=== PATIENT | female | born 1940 | race Caucasian/White ===

== ENCOUNTER 2016-08-01 16:28 | Inpatient (IN) | payer MEDICARE, OTHER, MEDICAID ==
--- NOTE | 2016-08-01 16:57 | EDM.PDOC ---
ED HPI GENERAL MEDICAL PROBLEM - General Chief Complaint: General Stated Complaint: DECREASED MENTAL STATE Time Seen by Provider: 08/01/16 16:35 Source of Information: Reports: Family, [facility] records, Old records History Limitations: Reports: Other (patient is non-verbal) - History of Present Illness INITIAL COMMENTS - FREE TEXT/NARRATIVE: 76 yo female [facility] patient with a DNR order has been declining reportedly since . Not eating/drinking for the past couple of days. Not able to take any of her oral meds. Daughter visiting from [place] and asked the [facility] staff to have her sent to the ER for evaluation. Dr. Colon patient. Onset: gradual Onset Date: 07/05/16 Duration: Week(s):, Getting worse Location: Reports: other (Uncertain) Severity: moderate Improves with: Reports: None Worsens with: Reports: Other (Time?) Context: Reports: Other ([facility] patient with recent decline, DNR status) Associated Symptoms: Reports: loss of appetite, weakness Treatments ORTHOTIC FITTER: Reports: Other (see below) (None) - Related Data Allergies Allergy/AdvReac Type Severity Reaction Status Date / Time No Known Allergies Allergy Verified 04/28/13 13:31 Home Meds: Home Meds Acetaminophen [Tylenol] 650 mg PO BID 04/28/13 [History] Aspirin/Calcium Carbonate/Mag [Aspirin Buffered 325 mg Tab] 325 mg PO DAILY 11/02 [History] Carboxymethylcellulose Sodium [Refresh Plus 0.5% Ophth Soln] 1 drop EYEBOTH QID 04/28/13 [History] Cholecalciferol (Vitamin D3) [Thera-D] 2,000 units PO 04/28/13 [History] Cyanocobalamin/Folic Acid [Vitamin Q81-Ketxm Acid] 1 tab PO DAILY 04/28/13 [ History] Donepezil [Aricept] 5 mg PO DAILY 04/28/13 [History] Estradiol [Climara] 1 each TD ASDIRECTED 04/28/13 [History] Eucalyptus/Menthol [Menthol Cough Drops] 1 PRN 04/28/13 [History] Gabapentin [Neurontin] 300 mg PO TID 04/28/13 [History] Gabapentin [Neurontin] 400 mg PO BEDTIME 04/28/13 [History] Glycerin 1 supp.rect PRN 04/28/13 [History] Hydrocortisone [Anusol-HC] PRN 04/28/13 [History] Hypromellose [GenTeal Mild to Moderate Ophth Soln] 25 ml EYELF DAILY 04/28/13 [ History] LORazepam [Ativan] 0.5 mg PO PRN 04/28/13 [History] LORazepam [Ativan] 0.5 mg PO PRN 04/28/13 [History] Levothyroxine 25 mcg PO ACBRK 04/28/13 [History] [place] Carbonate 300 mg PO DAILY 04/28/13 [History] Loperamide HCl [Imodium A-D] 2 mg PO PRN 04/28/13 [History] Loratadine [Claritin] 10 mg PO DAILY 04/28/13 [History] Magnesium Hydroxide [Milk of Magnesia] 5 ml PRN 04/28/13 [History] Memantine [Namenda] 10 mg PO BID 04/28/13 [History] Miscellaneous Medical Supply [Eyelid Cleansing Pads] 1 each EYEBOTH BID [History] Na Phos,M-B/Na Phos,DI-B [Fleet Enema] 1 PRN 04/28/13 [History] OLANZapine [ZyPREXA] 5 mg PO DAILY 04/28/13 [History] OLANZapine [ZyPREXA] 10 mg PO DAILY 04/28/13 [History] Sertraline HCl [Zoloft] 50 mg PO DAILY 04/28/13 [History] Sodium Chloride 0.9% [Saline Flush] 10 ml EYEBOTH QID 04/28/13 [History] cycloSPORINE [Restasis] 1 drop EYEBOTH QID 04/28/13 [History] guaiFENesin [Robitussin] 5 mg PO PRN 04/28/13 [History] lamoTRIgine [Lamictal] 50 mg PO BID 04/28/13 [History] ED ROS GENERAL - Review of Systems Review Of Systems: See Below Constitutional: Reports: fever (low grade?), malaise, weakness, decreased appetite HEENT: Reports: Other (Redness of gum tissue of central maxilla, dry mouth) Cardiovascular: Reports: Other (tachycardia noted) Endocrine: Reports: no symptoms GI/Abdominal: Reports: Anorexia. Denies: Black stool, Bloody stool, Constipation, Diarrhea, Hematemesis, Hematochezia, Melena, Vomiting : Reports: no symptoms Musculoskeletal: Reports: no symptoms Skin: Reports: no symptoms Neurological: Reports: Other (Non-verbal, general decline over past 3 weeks. Not eating or drinking. ). Denies: Seizure, Syncope, Tremors Psychiatric: Reports: Confusion (more than in past. ). Denies: Agitation, Anxiety, Homicidal ideation, Suicidal ideation ED EXAM, GENERAL - Physical Exam Exam: See Below Exam Limited By: No limitations General Appearance: WD/WN, no apparent distress, lethargic Eye Exam: bilateral eye: normal inspection Ears: normal external exam, normal canal, normal TMs Ear Exam: bilateral ear: auricle normal, canal normal, TM normal Nose: normal inspection, normal mucosa, no blood Throat/Mouth: No airway compromise, Inflammation (of gum tissue with poor oral hygiene and poor dentitian. Dry oral mucosa. ). No: Normal inspection, Normal lips, Normal teeth, Normal oropharynx Head: atraumatic, normocephalic Neck: normal inspection Respiratory/Chest: no respiratory distress, lungs clear, normal breath sounds, no accessory muscle use Cardiovascular: tachycardia (rate near 100/min. ). No: irregularly irregular GI/Abdominal: soft, no distention Back Exam: normal inspection Extremities: normal inspection, normal range of motion, no pedal edema Neurological: no motor/sensory deficits Skin Exam: Warm, Dry, Intact, Normal color, No rash Lymphatic: no adenopathy EKG INTERPRETATION EKG Date: 08/01/16 Time: 18:30 Rhythm: NSR Rate (beats/min): 118 [place]: normal P-wave: present QRS: normal ST-T: elevated (V2, V3) QT: normal EKG Interpretation Comments: T's flipped I, AVL and V4-V6 Course - Vital Signs Text/Narrative:: saline lock, LR 1000 ml IV CXR-neg. Abdomen-increased air Last Recorded V/S: Last Vital Signs Temp 37.3 C 08/01/16 16:41 Pulse 92 08/01/16 16:41 Resp 14 08/01/16 16:41 BP 170/96 H 08/01/16 16:41 Pulse Ox 95 08/01/16 16:41 - Orders/Labs/Meds Orders: Active Orders 24 hr Category Date Time Status EKG Documentation Completion [RC] ASDIRECTED Care 08/01/16 18:04 Active [place] Catheter Insertion [Insert Urinary Catheter] [OM. Care 08/01/16 16:45 Ordered PC] Q24H Urinary Catheter Assessment [RC] QSHIFT Care 08/01/16 16:46 Active Abdomen 1V Flat [CR] Stat Exams 08/01/16 17:02 Taken Chest 1V Frontal [CR] Stat Exams 08/01/16 17:02 Taken CULTURE BLOOD [BC] Urgent Lab 08/01/16 16:55 Results CULTURE BLOOD [BC] Urgent Lab 08/01/16 17:04 Received Sodium Chloride 0.9% [Saline Flush] Med 08/01/16 16:46 Active 10 ml FLUSH ASDIRECTED PRN Blood Culture x2 Reflex Set [OM.PC] Urgent Oth 08/01/16 16:46 Ordered Saline Lock Insert [OM.PC] Routine Oth 08/01/16 16:46 Ordered EKG 12 Lead [EK] Routine Ther 08/01/16 18:04 Ordered Medication Orders Sodium Chloride (Saline Flush) 10 ml FLUSH ASDIRECTED PRN PRN Reason: Keep Vein Open Labs: Laboratory Tests 08/01/16 08/01/16 08/01/16 Range/Units 16:55 16:55 16:55 WBC 16.1 H (4.5-12.0) X10-3/uL RBC 5.51 H (3.23-5.20) x10(6)uL Hgb 16.4 H (11.5-15.5) g/dL Hct 50.7 (30.0-51.3) % MCV 92.0 (80-96) fL MCH 29.7 (27.7-33.6) pg MCHC 32.3 (32.2-35.4) g/dL RDW 13.8 (11.5-15.5) % Plt Count 321 (125-369) X10(3)uL Sodium 147 H (135-145) mmol/L Potassium 3.8 (3.5-5.3) mmol/L Chloride 121 H* D (100-110) mmol/L Carbon Dioxide 17 L (23-29) mmol/L BUN 32 H D (8-23) mg/dL Creatinine 1.8 H (0.6-1.3) mg/dL Est Cr Clr Drug Dosing TNP Estimated GFR (MDRD) 27 L (>60) BUN/Creatinine Ratio 17.8 (9-20) Glucose 310 H (80-116) mg/dL Lactic Acid 1.8 (0.5-2.2) mmol/L Calcium 10.7 H (8.6-10.2) mg/dL Total Bilirubin 1.2 (0.1-1.3) mg/dL AST 118 H D (5-27) IU/L ALT 43 H D (14-26) IU/L Alkaline Phosphatase 57 (56-112) IU/L Troponin I (0.02-0.06) NG/ML Total Protein 8.9 H (6.0-8.0) g/dL Albumin 4.3 (3.2-4.6) g/dL Globulin 4.6 g/dL Albumin/Globulin Ratio 0.9 Urine Color (YELLOW) Urine Appearance (CLEAR) Urine pH (5.0-6.5) Ur Specific [place] (1.010-1.025) Urine Protein (NEGATIVE) mg/dL Urine Glucose (UA) (NEGATIVE) mg/dL Urine Ketones (NEGATIVE) mg/dL Urine Occult Blood (NEGATIVE) Urine Nitrite (NEGATIVE) Urine Bilirubin (NEGATIVE) Urine Urobilinogen (NEGATIVE) mg/dL Ur Leukocyte Esterase (NEGATIVE) Urine RBC (0) Urine WBC (0) Ur Squamous Epith Cells (NS,R,O) Amorphous Sediment Urine Bacteria (NS) Hyaline Casts (NS) 08/01/16 08/01/16 Range/Units 16:55 17:22 WBC (4.5-12.0) X10-3/uL RBC (3.23-5.20) x10(6)uL Hgb (11.5-15.5) g/dL Hct (30.0-51.3) % MCV (80-96) fL MCH (27.7-33.6) pg MCHC (32.2-35.4) g/dL RDW (11.5-15.5) % Plt Count (125-369) X10(3)uL Sodium (135-145) mmol/L Potassium (3.5-5.3) mmol/L Chloride (100-110) mmol/L Carbon Dioxide (23-29) mmol/L BUN (8-23) mg/dL Creatinine (0.6-1.3) mg/dL Est Cr Clr Drug Dosing Estimated GFR (MDRD) (>60) BUN/Creatinine Ratio (9-20) Glucose (80-116) mg/dL Lactic Acid (0.5-2.2) mmol/L Calcium (8.6-10.2) mg/dL Total Bilirubin (0.1-1.3) mg/dL AST (5-27) IU/L ALT (14-26) IU/L Alkaline Phosphatase (56-112) IU/L Troponin I 0.75 H* (0.02-0.06) NG/ML Total Protein (6.0-8.0) g/dL Albumin (3.2-4.6) g/dL Globulin g/dL Albumin/Globulin Ratio Urine Color Yellow (YELLOW) Urine Appearance Slightly cloudy (CLEAR) Urine pH 5.0 (5.0-6.5) Ur Specific [place] 1.020 (1.010-1.025) Urine Protein 500 H (NEGATIVE) mg/dL Urine Glucose (UA) Normal (NEGATIVE) mg/dL Urine Ketones Negative (NEGATIVE) mg/dL Urine Occult Blood Large H (NEGATIVE) Urine Nitrite Negative (NEGATIVE) Urine Bilirubin Small H (NEGATIVE) Urine Urobilinogen Normal (NEGATIVE) mg/dL Ur Leukocyte Esterase Negative (NEGATIVE) Urine RBC 0-5 (0) Urine WBC 0-5 (0) Ur Squamous Epith Cells Not seen (NS,R,O) Amorphous Sediment Many Urine Bacteria Few H (NS) Hyaline Casts Moderate H (NS) Meds: Medications Generic Name Dose Route Start Last Admin Trade Name Freq PRN Reason Stop Dose Admin Sodium Chloride 10 ml 08/01/16 16:46 Saline Flush FLUSH ASDIRECTED PRN Keep Vein Open Discontinued Medications Generic Name Dose Route Start Last Admin Trade Name Freq PRN Reason Stop Dose Admin Lactated Ringer's 1,000 mls @ 1,000 mls/hr 08/01/16 17:33 Ringers, Lactated IV 08/01/16 18:32 BOLUS ONE Departure - Departure Time of Disposition: 19:00 Disposition: Admitted As Inpatient 66 Condition: serious Clinical Impression: MO, Myocardial infarction, Hyperglycemia - My Orders Last 24 Hours: My Active Orders 08/01/16 16:45 [place] Catheter Insertion [Insert Urinary Catheter] [OM.PC] Q24H 08/01/16 16:46 Urinary Catheter Assessment [RC] QSHIFT Sodium Chloride 0.9% [Saline Flush] 10 ml FLUSH ASDIRECTED PRN Blood Culture x2 Reflex Set [OM.PC] Urgent Saline Lock Insert [OM.PC] Routine 08/01/16 16:55 CULTURE BLOOD [BC] Urgent 08/01/16 17:02 Abdomen 1V Flat [CR] Stat Chest 1V Frontal [CR] Stat 08/01/16 17:04 CULTURE BLOOD [BC] Urgent 08/01/16 18:04 EKG Documentation Completion [RC] ASDIRECTED EKG 12 Lead [EK] Routine - Assessment/Plan Last 24 Hours: My Active Orders 08/01/16 16:45 [place] Catheter Insertion [Insert Urinary Catheter] [OM.PC] Q24H 08/01/16 16:46 Urinary Catheter Assessment [RC] QSHIFT Sodium Chloride 0.9% [Saline Flush] 10 ml FLUSH ASDIRECTED PRN Blood Culture x2 Reflex Set [OM.PC] Urgent Saline Lock Insert [OM.PC] Routine 08/01/16 16:55 CULTURE BLOOD [BC] Urgent 08/01/16 17:02 Abdomen 1V Flat [CR] Stat Chest 1V Frontal [CR] Stat 08/01/16 17:04 CULTURE BLOOD [BC] Urgent 08/01/16 18:04 EKG Documentation Completion [RC] ASDIRECTED EKG 12 Lead [EK] Routine
[2016-08-01] MEDS ORDERED: Lactated Ringers 1,000 ML IV ONE (17:33)
[2016-08-01] MEDS ORDERED: Ondansetron 4 MG/2 ML SDV IV PRN (18:44)
[2016-08-01] MEDS ORDERED: Acetaminophen 650 MG Supp RECTAL PRN (18:44)
[2016-08-01] MEDS ORDERED: Lactated Ringers 1,000 ML IV SCH (19:00)
[2016-08-01] MEDS ORDERED: Diltiazem 100 MG in Sodium Chloride 0.9% 100 ML IV SCH (19:15)
[2016-08-01] MEDS: Sodium Chloride 0.9% 10 ML Syringe FLUSH PRN ×2 (19:29→19:33)
[2016-08-01] MEDS: Morphine 2 MG/ML Syringe IVPUSH PRN (19:41)
[2016-08-01] MEDS ORDERED: Sodium Chloride 0.9% 1,000 ML IV SCH ×2 (20:45→22:45)
[2016-08-01] MEDS ORDERED: Aspirin 325 MG Tab PO ONE (21:16)
[2016-08-01] MEDS ORDERED: Aspirin 81 MG Tab.Chew ONE (21:44)
[2016-08-01] MEDS ORDERED: Carboxymethylcellulose Sodium 0.5% Ophth Soln 15 ML Bottle ONE (21:44)
[2016-08-01] MEDS: MEDICAL SUPPLY EYEBOTH SCH (21:52)
[2016-08-01] MEDS: Enoxaparin 80 MG/0.8 ML Syringe SUBCUT SCH (21:56)
[2016-08-01] MEDS: Carboxymethylcellulose Sodium 0.5% Ophth Soln 0.4 ML UD Box of 30 EYEBOTH SCH (21:57)
[2016-08-01] MEDS ORDERED: OLANZapine 10 MG Vial IM ONE (22:44)
[2016-08-02] MEDS ORDERED: OLANZapine 10 MG Vial IM ONE (02:00)
[2016-08-02] MEDS: Morphine 2 MG/ML Syringe IVPUSH PRN ×4 (08:43→18:42)
[2016-08-02] MEDS: Dextrose 5% in Water 1,000 ML IV SCH (08:48)
[2016-08-02] MEDS ORDERED: Glycerin Pediatric 1.2 GM Supp RECTAL SCH (09:00)
[2016-08-02] MEDS: Aspirin 300 MG Supp RECTAL SCH (09:42)
[2016-08-02] MEDS: Hypromellose 0.3% Ophth Soln 15 ML Bottle EYELF SCH (09:43)
[2016-08-02] MEDS ORDERED: Eyelid Cleanser Pads, 30 per Box TP SCH (10:20)
[2016-08-02] MEDS: Enoxaparin 80 MG/0.8 ML Syringe SUBCUT SCH ×2 (11:08→20:05)
[2016-08-02] MEDS: Carboxymethylcellulose Sodium 0.5% Ophth Soln 15 ML Bottle EYEBOTH SCH ×4 (11:08→20:07)
[2016-08-02] MEDS: Insulin Aspart 100 Units/ML 3 ML Pen SUBCUT SCH ×3 (11:15→20:19)
[2016-08-02] MEDS: MEDICAL SUPPLY EYEBOTH SCH (11:25)
[2016-08-02] MEDS: Carboxymethylcellulose Sodium 0.5% Ophth Soln 0.4 ML UD Box of 30 EYEBOTH SCH (11:25)
--- NOTE | 2016-08-02 11:26 | CR ---
INDICATION: Fever, decreased level of consciousness. CHEST: An AP 45 degree upright view of the chest 08/01/2016, compared with and 07/17/2016, revealed findings remaining compatible with exogenous obesity. Poor inspiration is noted emphasizing markings and heart. No consolidating pneumonia or effusion is identified. The heart did not appear grossly enlarged. The aorta is tortuous. No definite free air is noted under the hemidiaphragm leaves. IMPRESSION: No definite acute process. The study is somewhat limited. MTDD
--- NOTE | 2016-08-02 11:34 | CR ---
INDICATION: Fever, decreased level of consciousness, question abdominal pain. ABDOMEN: Three supine images of the abdomen were obtained 08/01/2016 and compared with 12/09/2013. Iliac and uterine artery calcifications are noted. There is question of densities in the area of the gallbladder, raising question of cholelithiasis. This should be correlated clinically. Bowel containing air in the mid abdomen is somewhat prominent, with an appearance to the left suggesting cecum, which would represent a mobile cecum. There is, however, noted colon in the area of the right lower quadrant. No other organomegaly or mass lesions were identified. No gross free air was seen. There is noted gas in the area of the rectosigmoid and rectum. Post surgical change is noted at the pubic symphysis. IMPRESSION: 1. Question the possibility of a mobile cecum and/or malrotation, with what appears to be the cecum in the left mid abdomen. It appears slightly distended , as is adjacent colon, which may be incidental. If a mechanically obstructive process of the large bowel is suspected clinically, colonoscopy or barium enema is recommended for further evaluation. 2. Difficult to exclude cholelithiasis, with some densities overlying that area. 3. ASD. 4. There is suggestion of some deformity at the proximal right femur, not present on the previous examination, raising question of interval fracture - correlate clinically. MTDD
--- NOTE | 2016-08-02 13:08 | PCM.HP ---
H&P History of Present Illness - General Date of Service: 08/02/16 Admit Problem/Dx: Admission Diagnosis/Problem Admission Diagnosis/Problem Acute myocardial infarction Source of Information: [facility] Records, Provider History Limitations: Reports: Altered Mental Status - History of Present Illness Initial Comments - Free Text/Narative: 76 y female residential resident admitted overnight for sudden decline in mental status and several days of refusing intake including food/fluids and numerous medications resulting in agitation and increased restlessness. she'd not been having fevers or chills. no n/v. no rash or change in bowels, bladder. just became difficult to arouse. seen in ED and found to be dehydrated, combative, noted to have poor dentition with a avulsed tooth requiring extraction by ED doc. unsure how this happened, but was acute and likely due to poor dentition and combativeness. she was started on iv clindamycin (for dental trauma/infection), iv fluids for electrolyte disturbance and hyperglycemia in the setting of severely uncontrolled DM2. her trops came back elevated and progressed. she was given asa 325 crushed, started on therapeutic lovenox, and standard ACS protocol. ck severely elevated as well. she required zyprexa dose overnight due to aggitation and restlessness. her bp became labile. Today she is at the nurses station in a reclined chair. awake, but not conversive. will not let me touch her. after some time, i am able to conduct a general exam without overstimulating her. no family present at this time. nursing report received. - Related Data Allergies/Adverse Reactions: Allergies Allergy/AdvReac Type Severity Reaction Status Date / Time No Known Allergies Allergy Verified 04/28/13 13:31 Home Medications: Home Meds Carboxymethylcellulose Sodium [Refresh Plus 0.5%] 1 drop EYEBOTH QID 04/28/13 [ History] Gabapentin [Neurontin] 300 mg PO TID 04/28/13 [History] Gabapentin [Neurontin] 400 mg PO BEDTIME 04/28/13 [History] Hydrocortisone [Anusol-HC] 1 applic RECTAL DAILY 04/28/13 [History] Hypromellose [GenTeal Mild to Moderate Ophth Soln] 25 ml EYELF DAILY 04/28/13 [ History] LORazepam [Ativan] 0.5 mg PO TID 04/28/13 [History] Loperamide HCl [Imodium A-D] 2 mg PO DAILY 04/28/13 [History] Loratadine [Claritin] 10 mg PO DAILY 04/28/13 [History] Magnesium Hydroxide [Milk of Magnesia] 5 ml PO DAILY 04/28/13 [History] Miscellaneous Medical Supply [Eyelid Cleansing Pads] 1 each EYEBOTH BID [History] OLANZapine [ZyPREXA] 5 mg PO DAILY 04/28/13 [History] OLANZapine [ZyPREXA] 10 mg PO DAILY 04/28/13 [History] cycloSPORINE [Restasis] 1 drop EYEBOTH QID 04/28/13 [History] guaiFENesin [Robitussin] 5 mg PO ASDIRECTED PRN 04/28/13 [History] Acetaminophen [Tylenol] 650 mg RECTAL Q4H PRN #0 supp 08/02/16 [Rx] Aspirin 600 mg RECTAL DAILY supp 08/02/16 [Rx] Eyelid Cleanser [Ocusoft Lid Scrub Plus] 1 pad TP BID pad 08/02/16 [Rx] Morphine 2 mg IVPUSH Q2H PRN #0 syringe 08/02/16 [Rx] Ondansetron [Zofran] 4 mg IV Q6H PRN #0 vial 08/02/16 [Rx] Sodium Chloride 0.9% [Saline Flush] 10 ml FLUSH ASDIRECTED PRN #0 syringe [Rx] Past Medical History HEENT History: Reports: Impaired Vision, Other (See Below) Other HEENT History: HAS REFRESH EYE DROPS. 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 Social & Family History - Family History Family Medical History: Unobtainable - Tobacco Use Smoking Status *Q: Never Smoker Second Hand Smoke Exposure: No - Caffeine Use Caffeine Use: Reports: None - Recreational Drug Use Recreational Drug Use: No - Living Situation & Occupation Living situation: Reports: , Extended Care Facility [facility] H&P Review of Systems - Review of Systems: Review Of Systems: Unable To Obtain Exam - Exam Exam: See Below - Vital Signs Vital Signs: Last Vital Signs Temp 98.9 F 08/02/16 12:30 Pulse 94 08/02/16 12:30 Resp 20 08/02/16 12:30 BP 165/84 H 08/02/16 12:30 Pulse Ox 93 L 08/02/16 12:30 Weight: 84 kg - Exam Physical Exam Comments:: Quality Assessment: Reports: urine catheter General: Reports: lethargic, non communicative HEENT: Reports: Pupils equal. Denies: Mucous membr. moist/pink, dried blood to oral mucosa. molar extraction hemostatic. no pus. no jaw swelling or warmth. Neck: Reports: trachea midline, no adenopathy Lungs: Reports: Decreased breath sounds no Rales Cardiovascular: Reports: Regular Rate, Regular Rhythm, Gallops Abdomen: Reports: bowel sounds present, soft Extremities: Reports: edema (trace bilat) Skin: Reports: dry - Patient Data Lab Results last 24 hrs: Laboratory Results - last 24 hr 08/01/16 08/01/16 08/01/16 Range/Units 20:20 22:20 22:20 WBC (4.5-12.0) X10-3/uL RBC (3.23-5.20) x10(6)uL Hgb (11.5-15.5) g/dL Hct (30.0-51.3) % MCV (80-96) fL MCH (27.7-33.6) pg MCHC (32.2-35.4) g/dL RDW (11.5-15.5) % Plt Count (125-369) X10(3)uL MPV (7.4-10.4) fL Neut % (Auto) (46-82) % Lymph % (Auto) (13-37) % Russell % (Auto) (4-12) % Eos % (Auto) (1.0-5.0) % Baso % (Auto) (0-2) % Neut # (Auto) (1.6-8.3) # Lymph # (Auto) (0.6-5.0) # Russell # (Auto) (0.0-1.3) # Eos # (Auto) (0.0-0.8) # Baso # (Auto) (0.0-0.2) # Sodium 151 H (135-145) mmol/L Potassium 3.9 (3.5-5.3) mmol/L Chloride 123 H* (100-110) mmol/L Carbon Dioxide 19 L (23-29) mmol/L BUN 35 H (8-23) mg/dL Creatinine 1.8 H (0.6-1.3) mg/dL Est Cr Clr Drug Dosing 22.96 mL/min Estimated GFR (MDRD) 27 L (>60) BUN/Creatinine Ratio 19.4 (9-20) Glucose 311 H (80-116) mg/dL POC Glucose (80-116) mg/dL Hemoglobin A1c (4.0-6.0) % Calcium 9.9 (8.6-10.2) mg/dL Total Bilirubin 0.9 (0.1-1.3) mg/dL AST 109 H (5-27) IU/L ALT 41 H (14-26) IU/L Alkaline Phosphatase 49 L (56-112) IU/L Creatine Kinase (60-160) IU/L Troponin I 0.77 H* 0.83 H* (0.02-0.06) NG/ML Total Protein 7.5 (6.0-8.0) g/dL Albumin 3.6 (3.2-4.6) g/dL Globulin 3.9 g/dL Albumin/Globulin Ratio 0.9 08/02/16 08/02/16 08/02/16 Range/Units 06:40 06:40 06:40 WBC 11.5 (4.5-12.0) X10-3/uL RBC 3.87 (3.23-5.20) x10(6)uL Hgb 11.9 D (11.5-15.5) g/dL Hct 35.7 D (30.0-51.3) % MCV 92.1 (80-96) fL MCH 30.6 (27.7-33.6) pg MCHC 33.3 (32.2-35.4) g/dL RDW 13.6 (11.5-15.5) % Plt Count 171 (125-369) X10(3)uL MPV 8.7 (7.4-10.4) fL Neut % (Auto) 68.2 (46-82) % Lymph % (Auto) 21.9 (13-37) % Russell % (Auto) 9.6 (4-12) % Eos % (Auto) 0 L (1.0-5.0) % Baso % (Auto) 0 (0-2) % Neut # (Auto) 7.9 (1.6-8.3) # Lymph # (Auto) 2.5 (0.6-5.0) # Russell # (Auto) 1.1 (0.0-1.3) # Eos # (Auto) 0.0 (0.0-0.8) # Baso # (Auto) 0.0 (0.0-0.2) # Sodium 151 H (135-145) mmol/L Potassium 3.8 (3.5-5.3) mmol/L Chloride 126 H* (100-110) mmol/L Carbon Dioxide 19 L (23-29) mmol/L BUN 37 H (8-23) mg/dL Creatinine 1.6 H (0.6-1.3) mg/dL Est Cr Clr Drug Dosing 22.57 mL/min Estimated GFR (MDRD) 31 L (>60) BUN/Creatinine Ratio 23.1 H (9-20) Glucose 322 H (80-116) mg/dL POC Glucose (80-116) mg/dL Hemoglobin A1c (4.0-6.0) % Calcium 8.8 (8.6-10.2) mg/dL Total Bilirubin (0.1-1.3) mg/dL AST (5-27) IU/L ALT (14-26) IU/L Alkaline Phosphatase (56-112) IU/L Creatine Kinase (60-160) IU/L Troponin I 0.69 H* (0.02-0.06) NG/ML Total Protein (6.0-8.0) g/dL Albumin (3.2-4.6) g/dL Globulin g/dL Albumin/Globulin Ratio 08/02/16 08/02/16 08/02/16 Range/Units 06:40 06:40 11:07 WBC (4.5-12.0) X10-3/uL RBC (3.23-5.20) x10(6)uL Hgb (11.5-15.5) g/dL Hct (30.0-51.3) % MCV (80-96) fL MCH (27.7-33.6) pg MCHC (32.2-35.4) g/dL RDW (11.5-15.5) % Plt Count (125-369) X10(3)uL MPV (7.4-10.4) fL Neut % (Auto) (46-82) % Lymph % (Auto) (13-37) % Russell % (Auto) (4-12) % Eos % (Auto) (1.0-5.0) % Baso % (Auto) (0-2) % Neut # (Auto) (1.6-8.3) # Lymph # (Auto) (0.6-5.0) # Russell # (Auto) (0.0-1.3) # Eos # (Auto) (0.0-0.8) # Baso # (Auto) (0.0-0.2) # Sodium (135-145) mmol/L Potassium (3.5-5.3) mmol/L Chloride (100-110) mmol/L Carbon Dioxide (23-29) mmol/L BUN (8-23) mg/dL Creatinine (0.6-1.3) mg/dL Est Cr Clr Drug Dosing mL/min Estimated GFR (MDRD) (>60) BUN/Creatinine Ratio (9-20) Glucose (80-116) mg/dL POC Glucose 311 H (80-116) mg/dL Hemoglobin A1c 11.2 H (4.0-6.0) % Calcium (8.6-10.2) mg/dL Total Bilirubin (0.1-1.3) mg/dL AST (5-27) IU/L ALT (14-26) IU/L Alkaline Phosphatase (56-112) IU/L Creatine Kinase 2679 H* (60-160) IU/L Troponin I (0.02-0.06) NG/ML Total Protein (6.0-8.0) g/dL Albumin (3.2-4.6) g/dL Globulin g/dL Albumin/Globulin Ratio Result Diagrams: 08/02/16 06:40 08/02/16 06:40 *Q Meaningful Use (ADM) - VTE *Q VTE Criteria *Q: - Stroke *Q Stroke Criteria *Q: - AMI *Q AMI Criteria *Q: - Problem List (1) AL, Myocardial infarction SNOMED Code(s): 09598423 ICD Code: I21.3 - ST ELEVATION (STEMI) MYOCARDIAL INFARCTION OF [facility] S[facility] Status: Acute Priority: High (2) DNR (do not resuscitate) Status: Chronic Priority: High (3) DNI (do not intubate) SNOMED Code(s): 958046476 ICD Code: Z78.9 - OTHER SPECIFIED HEALTH STATUS Status: Chronic Priority : High (4) CVD (cardiovascular disease) Status: Acute Priority: High (5) Dementia SNOMED Code(s): 07884507 ICD Code: F03.90 - UNSPECIFIED DEMENTIA WITHOUT BEHAVIORAL DISTURBANCE Status: Chronic Qualifiers: Dementia type: vascular dementia Dementia behavioral disturbance: with behavioral disturbance Qualified Code(s): F01.51 - Vascular dementia with behavioral disturbance (6) Acute on chronic renal insufficiency SNOMED Code(s): 125804392 ICD Code: N28.9 - DISORDER OF KIDNEY AND URETER, UNSPECIFIED; N18.9 - CHRONIC KIDNEY DISEASE, UNSPECIFIED Status: Acute Priority: High (7) Uncontrolled diabetes mellitus with complication, with long-term current use of insulin SNOMED Code(s): 28077114, 075401700 ICD Code: E11.8 - TYPE 2 DIABETES MELLITUS WITH UNSPECIFIED COMPLICATIONS; E11.65 - TYPE 2 DIABETES MELLITUS WITH HYPERGLYCEMIA; Z79.4 - RETIREMENT (CURRENT ) USE OF INSULIN Status: Acute Priority: High Qualifiers: Diabetes mellitus type: type 2 Qualified Code(s): E11.8 - Type 2 diabetes mellitus with unspecified complications; E11.65 - Type 2 diabetes mellitus with hyperglycemia; Z79.4 - senior care (current) use of insulin (8) Hyperglycemia SNOMED Code(s): 94791373 ICD Code: R73.9 - HYPERGLYCEMIA, UNSPECIFIED Status: Acute Priority: High (9) Declining functional status SNOMED Code(s): 144221534292952 ICD Code: R53.81 - OTHER MALAISE Status: Acute Priority: High (10) Hypertension SNOMED Code(s): 12700031 ICD Code: I10 - ESSENTIAL (PRIMARY) HYPERTENSION Status: Acute Priority: Medium Qualifiers: Hypertension type: essential hypertension Qualified Code(s): I10 - Essential (primary) hypertension (11) CVD (cerebrovascular disease) SNOMED Code(s): 32655503 ICD Code: I67.9 - CEREBROVASCULAR DISEASE, UNSPECIFIED Status: Chronic Priority: High (12) Palliative care status SNOMED Code(s): 697402027 ICD Code: Z51.5 - ENCOUNTER FOR PALLIATIVE CARE Status: Acute Priority: High (13) prison resident SNOMED Code(s): 321802022 ICD Code: Z59.3 - PROBLEMS RELATED TO LIVING IN RESIDENTIAL INSTITUTION Status: Acute Priority: Low (14) Mobility impaired SNOMED Code(s): 94353937 ICD Code: Z74.09 - OTHER REDUCED MOBILITY Status: Acute Priority: Low Problem List Initiated/Reviewed/Updated: Yes Orders Last 24hrs: Active Orders 24 hr Category Date Time Status Blood Glucose Check, Bedside [RC] ,11,17,21 Care 08/02/16 08:21 Active EKG Documentation Completion [RC] ASDIRECTED Care 08/01/16 20:45 Active Consult to Hospice [CONS] Routine Cons 08/02/16 11:31 Active Head wo Cont [CT] Routine Exams 08/01/16 20:38 Taken Guaiac [OCCULT BLOOD DIAGNOSTIC] [OP] Routine Lab 08/02/16 09:16 Uncollected LAMOTRIGINE [REF] Routine Lab 08/02/16 08:21 Ordered LITHIUM [REF] Routine Lab 08/02/16 08:21 Ordered TSH ULTRASENSITIVE [CHEM] Routine Lab 08/02/16 08:21 Ordered Aspirin Med 08/02/16 09:00 Active 600 mg RECTAL DAILY Carboxymethylcellulose Sodium [Refresh Tears 0.5%] Med 08/02/16 09:00 Active 0 ml EYEBOTH QID Clindamycin Phosphate [Cleocin] 600 mg Med 08/01/16 19:15 Active Sodium Chloride 0.9% [Normal Saline] 50 ml IV Q8H Dextrose 5% in Water 1,000 ml Med 08/02/16 08:30 Active IV ASDIRECTED Eyelid Cleanser [Ocusoft Lid Scrub Plus] Med 08/02/16 21:00 Active 1 pad TP BID Hypromellose [GenTeal Mild to Moderate Ophth Soln] Med 08/02/16 09:00 Active 0 ml EYELF DAILY Insulin Aspart [NovoLOG] Med 08/02/16 11:30 Active See Protocol SUBCUT QIDACANDBED EKG 12 Lead [EK] Routine Ther 08/01/16 20:44 Ordered Medication Orders Acetaminophen (Tylenol) 650 mg RECTAL Q4H PRN PRN Reason: Mild pain/fever Last Admin: 08/02/16 09:42 Dose: 650 mg Artificial Tears (Genteal Mild To Moderate Ophth Soln) 0 ml EYELF DAILY [facility] Last Admin: 08/02/16 09:43 Dose: 1 drop Artificial Tears (Refresh Tears 0.5%) 0 ml EYEBOTH QID JOO Last Admin: 08/02/16 11:08 Dose: 1 drop Aspirin (Aspirin) 600 mg RECTAL DAILY [facility] Last Admin: 08/02/16 09:42 Dose: 600 mg Enoxaparin Sodium (Lovenox) 80 mg SUBCUT Q12H [facility] Last Admin: 08/02/16 11:08 Dose: 80 mg Admin: 08/01/16 21:56 Dose: 80 mg Eye Cleanser (Ocusoft Lid Scrub Plus) 1 pad TP BID JOO Clindamycin Phosphate 600 mg/ (Sodium Chloride) 54 mls @ 150 mls/hr IV Q8H [facility] Last Admin: 08/02/16 11:09 Dose: 150 mls/hr Admin: 08/02/16 03:11 Dose: 150 mls/hr Admin: 08/01/16 19:45 Dose: 150 mls/hr Dextrose/Water (Dextrose 5% In Water) 1,000 mls @ 50 mls/hr IV ASDIRECTED [facility] Last Admin: 08/02/16 08:48 Dose: 50 mls/hr Insulin Aspart (Novolog) 0 unit SUBCUT QIDACANDBED JOO PRN Reason: Protocol Last Admin: 08/02/16 11:15 Dose: 8 unit Morphine Sulfate (Morphine) 2 mg IVPUSH Q2H PRN PRN Reason: Pain (severe 7-10) Last Admin: 08/02/16 11:00 Dose: 2 mg Admin: 08/02/16 08:43 Dose: 2 mg Admin: 08/01/16 19:41 Dose: 2 mg Ondansetron HCl (Zofran) 4 mg IV Q6H PRN PRN Reason: Nausea/Vomiting Sodium Chloride (Saline Flush) 10 ml FLUSH ASDIRECTED PRN PRN Reason: Keep Vein Open Last Admin: 08/01/16 19:33 Dose: 10 ml Admin: 08/01/16 19:29 Dose: 10 ml Assessment/Plan Comment:: films and interpretations reviewed. acute STEMI. pump failure. multiorgan failure secondary to #1 and comorbidities. numerous psychiatric medications for agitation. AMS not improved. no acute bleed or mass on cT. abdominal film nonspecific. treating acutely for AL. will monitor labs. no events on tele overnight. i believe she is an appropriate candidate for hospice in patient due to poor prognosis and limited quality of life. will discuss with her family before any further investigations or interventions are performed. i have consulted hospice on the patients behalf as i believe this is the appropriate time for transition to end of life cares. as Mrs. Monge is non communicative, will discuss all the above with the family when they arrive. will discontinue tele, but continue all other appropriate cares and treatments. Total Time: 65 min with >50% face to face with pt conducting exam after combativeness allowed, attempting to communicate with and comfort patient, assess swallowing ability etc.
--- NOTE | 2016-08-02 17:32 | PCM.DCSUM1 ---
Discharge Summary - Discharge Data Discharge Date: 08/03/16 Discharge Disposition: DC/Tfer to [facility] Condition: Poor - Discharge Diagnosis/Problem(s) (1) VT, Myocardial infarction SNOMED Code(s): 05971566 ICD Code: I21.3 - ST ELEVATION (STEMI) MYOCARDIAL INFARCTION OF UNSP SITE Status: Acute Current Visit: Yes (2) Hospice care patient SNOMED Code(s): 717272532 ICD Code: Z51.5 - ENCOUNTER FOR PALLIATIVE CARE Status: Acute Current Visit: Yes (3) Acute on chronic renal insufficiency SNOMED Code(s): 628984799 ICD Code: N28.9 - DISORDER OF KIDNEY AND URETER, UNSPECIFIED; N18.9 - CHRONIC KIDNEY DISEASE, UNSPECIFIED Status: Acute Current Visit: Yes (4) Uncontrolled diabetes mellitus with complication, with long-term current use of insulin SNOMED Code(s): 33181369, 543794676 ICD Code: E11.8 - TYPE 2 DIABETES MELLITUS WITH UNSPECIFIED COMPLICATIONS; E11.65 - TYPE 2 DIABETES MELLITUS WITH HYPERGLYCEMIA; 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 Status: Acute Current Visit: Yes Qualifiers: Diabetes mellitus type: type 2 Qualified Code(s): E11.8 - Type 2 diabetes mellitus with unspecified complications; E11.65 - Type 2 diabetes mellitus with hyperglycemia; Z79.4 - care home (current) use of insulin (5) Palliative care status SNOMED Code(s): 651683788 ICD Code: Z51.5 - ENCOUNTER FOR PALLIATIVE CARE Status: Acute Current Visit: Yes (6) Hyperglycemia SNOMED Code(s): 74938361 ICD Code: R73.9 - HYPERGLYCEMIA, UNSPECIFIED Status: Acute Current Visit : Yes (7) Hypertension SNOMED Code(s): 40408083 ICD Code: I10 - ESSENTIAL (PRIMARY) HYPERTENSION Status: Acute Current Visit: Yes Qualifiers: Hypertension type: essential hypertension Qualified Code(s): I10 - Essential (primary) hypertension (8) Declining functional status SNOMED Code(s): 323452966 ICD Code: R53.81 - OTHER MALAISE Status: Acute Current Visit: Yes (9) intermediate resident SNOMED Code(s): 833417410 ICD Code: Z59.3 - PROBLEMS RELATED TO LIVING IN RESIDENTIAL INSTITUTION Status: Acute Current Visit: Yes (10) Mobility impaired SNOMED Code(s): 20284595 ICD Code: Z74.09 - OTHER REDUCED MOBILITY Status: Acute Current Visit: Yes (11) CVD (cerebrovascular disease) SNOMED Code(s): 05657860 ICD Code: I67.9 - CEREBROVASCULAR DISEASE, UNSPECIFIED Status: Chronic Current Visit: Yes (12) CVD (cardiovascular disease) Status: Chronic Current Visit: Yes (13) Dementia SNOMED Code(s): 97282077 ICD Code: F03.90 - UNSPECIFIED DEMENTIA WITHOUT BEHAVIORAL DISTURBANCE Status: Chronic Current Visit: Yes Qualifiers: Dementia type: vascular dementia Dementia behavioral disturbance: with behavioral disturbance Qualified Code(s): F01.51 - Vascular dementia with behavioral disturbance - Patient Summary/Data Consults: Consultations 08/02/16 11:31 Consult to Hospice [CONS] Routine Comment: Physician Instructions: Hospital Course: 76 y female detention resident admitted for sudden decline in mental status and several days of refusing intake resulting in agitation and increased restlessness due to lack of ability to get her to take her oral medications. she 'd not been having fevers or chills. no n/v. no rash or change in bowels, bladder. just became difficulty to arouse. seen in ED and found to be dehydrated , combative, noted to have poor dentition with a avulsed tooth requiring extraction. she was started on iv clindamycin, iv fluids for electrolyte disturbance and hyperglycemia in the setting of severely uncontrolled DM2. her trops came back elevated and progressed. she was given asa 325 crushed, started on therapeutic lovenox, and standard ACS protocol. ck severely elevated as well. she required zyprexa dose overnight due to aggitation and restlessness. her bp became labile. examination of the patient, her hx and objective data is consistent with terminal event making her appropriate for hospice cares for comfort and peace as there is nothing at this stage that will improve her quality of life and she has indicated to her family that she would not want to be hooked up to tubes or in the hospital. her daughter is here and after discussion, she agrees that her mother would not want additional interventions or workups that would only lead to more anxiety, aggitation and prolonged low quality of life. they wish for her to go back to her familiar surroundings at her detention and be kept comfortable. We will respect the patient and family's wishes for hospice and comfort cares. - Patient Instructions Diet: Mechanical Soft Activity: As Tolerated - Discharge Plan Home Medications: Home Meds Carboxymethylcellulose Sodium [Refresh Plus 0.5%] 1 drop EYEBOTH QID 04/28/13 [ History] Gabapentin [Neurontin] 300 mg PO TID 04/28/13 [History] Gabapentin [Neurontin] 400 mg PO BEDTIME 04/28/13 [History] Hydrocortisone [Anusol-HC] 1 applic RECTAL DAILY 04/28/13 [History] Hypromellose [GenTeal Mild to Moderate Ophth Soln] 25 ml EYELF DAILY 04/28/13 [ History] LORazepam [Ativan] 0.5 mg PO TID 04/28/13 [History] Loperamide HCl [Imodium A-D] 2 mg PO DAILY 04/28/13 [History] Loratadine [Claritin] 10 mg PO DAILY 04/28/13 [History] Magnesium Hydroxide [Milk of Magnesia] 5 ml PO DAILY 04/28/13 [History] Miscellaneous Medical Supply [Eyelid Cleansing Pads] 1 each EYEBOTH BID [History] OLANZapine [ZyPREXA] 5 mg PO DAILY 04/28/13 [History] OLANZapine [ZyPREXA] 10 mg PO DAILY 04/28/13 [History] cycloSPORINE [Restasis] 1 drop EYEBOTH QID 04/28/13 [History] guaiFENesin [Robitussin] 5 mg PO ASDIRECTED PRN 04/28/13 [History] Acetaminophen [Tylenol] 650 mg RECTAL Q4H PRN #0 supp 08/02/16 [Rx] Aspirin 600 mg RECTAL DAILY supp 08/02/16 [Rx] Eyelid Cleanser [Ocusoft Lid Scrub Plus] 1 pad TP BID pad 08/02/16 [Rx] Morphine 2 mg IVPUSH Q2H PRN #0 syringe 08/02/16 [Rx] Ondansetron [Zofran] 4 mg IV Q6H PRN #0 vial 08/02/16 [Rx] Sodium Chloride 0.9% [Saline Flush] 10 ml FLUSH ASDIRECTED PRN #0 syringe [Rx] - Discharge Summary/Plan Comment DC Time >30 min.: Yes - General Info Date of Service: 08/02/16 Subjective Update: no responsive, mouth breathing, responds to external stimuli via withdrawl - Review of Systems Systems Review Comment: unable to obtain. - Patient Data Vitals - Most Recent: Last Vital Signs Temp 98.9 F 08/02/16 12:30 Pulse 94 08/02/16 12:30 Resp 20 08/02/16 12:30 BP 165/84 H 08/02/16 12:30 Pulse Ox 93 L 08/02/16 12:30 Weight - Most Recent: 84 kg I&O - Last 24 hours: Intake & Output 08/02/16 08/02/16 08/02/16 06:59 14:59 22:59 Intake Total 1550 600 Output Total 225 750 Balance 1325 -150 Lab Results - Last 24 hrs: Laboratory Results - last 24 hr 08/01/16 08/01/16 08/01/16 Range/Units 20:20 22:20 22:20 WBC (4.5-12.0) X10-3/uL RBC (3.23-5.20) x10(6)uL Hgb (11.5-15.5) g/dL Hct (30.0-51.3) % MCV (80-96) fL MCH (27.7-33.6) pg MCHC (32.2-35.4) g/dL RDW (11.5-15.5) % Plt Count (125-369) X10(3)uL MPV (7.4-10.4) fL Neut % (Auto) (46-82) % Lymph % (Auto) (13-37) % [place] % (Auto) (4-12) % Eos % (Auto) (1.0-5.0) % Baso % (Auto) (0-2) % Neut # (Auto) (1.6-8.3) # Lymph # (Auto) (0.6-5.0) # [place] # (Auto) (0.0-1.3) # Eos # (Auto) (0.0-0.8) # Baso # (Auto) (0.0-0.2) # Sodium 151 H (135-145) mmol/L Potassium 3.9 (3.5-5.3) mmol/L Chloride 123 H* (100-110) mmol/L Carbon Dioxide 19 L (23-29) mmol/L BUN 35 H (8-23) mg/dL Creatinine 1.8 H (0.6-1.3) mg/dL Est Cr Clr Drug Dosing 22.96 mL/min Estimated GFR (MDRD) 27 L (>60) BUN/Creatinine Ratio 19.4 (9-20) Glucose 311 H (80-116) mg/dL POC Glucose (80-116) mg/dL Hemoglobin A1c (4.0-6.0) % Calcium 9.9 (8.6-10.2) mg/dL Total Bilirubin 0.9 (0.1-1.3) mg/dL AST 109 H (5-27) IU/L ALT 41 H (14-26) IU/L Alkaline Phosphatase 49 L (56-112) IU/L Creatine Kinase (60-160) IU/L Troponin I 0.77 H* 0.83 H* (0.02-0.06) NG/ML Total Protein 7.5 (6.0-8.0) g/dL Albumin 3.6 (3.2-4.6) g/dL Globulin 3.9 g/dL Albumin/Globulin Ratio 0.9 08/02/16 08/02/16 08/02/16 Range/Units 06:40 06:40 06:40 WBC 11.5 (4.5-12.0) X10-3/uL RBC 3.87 (3.23-5.20) x10(6)uL Hgb 11.9 D (11.5-15.5) g/dL Hct 35.7 D (30.0-51.3) % MCV 92.1 (80-96) fL MCH 30.6 (27.7-33.6) pg MCHC 33.3 (32.2-35.4) g/dL RDW 13.6 (11.5-15.5) % Plt Count 171 (125-369) X10(3)uL MPV 8.7 (7.4-10.4) fL Neut % (Auto) 68.2 (46-82) % Lymph % (Auto) 21.9 (13-37) % [place] % (Auto) 9.6 (4-12) % Eos % (Auto) 0 L (1.0-5.0) % Baso % (Auto) 0 (0-2) % Neut # (Auto) 7.9 (1.6-8.3) # Lymph # (Auto) 2.5 (0.6-5.0) # [place] # (Auto) 1.1 (0.0-1.3) # Eos # (Auto) 0.0 (0.0-0.8) # Baso # (Auto) 0.0 (0.0-0.2) # Sodium 151 H (135-145) mmol/L Potassium 3.8 (3.5-5.3) mmol/L Chloride 126 H* (100-110) mmol/L Carbon Dioxide 19 L (23-29) mmol/L BUN 37 H (8-23) mg/dL Creatinine 1.6 H (0.6-1.3) mg/dL Est Cr Clr Drug Dosing 22.57 mL/min Estimated GFR (MDRD) 31 L (>60) BUN/Creatinine Ratio 23.1 H (9-20) Glucose 322 H (80-116) mg/dL POC Glucose (80-116) mg/dL Hemoglobin A1c (4.0-6.0) % Calcium 8.8 (8.6-10.2) mg/dL Total Bilirubin (0.1-1.3) mg/dL AST (5-27) IU/L ALT (14-26) IU/L Alkaline Phosphatase (56-112) IU/L Creatine Kinase (60-160) IU/L Troponin I 0.69 H* (0.02-0.06) NG/ML Total Protein (6.0-8.0) g/dL Albumin (3.2-4.6) g/dL Globulin g/dL Albumin/Globulin Ratio 08/02/16 08/02/16 08/02/16 Range/Units 06:40 06:40 11:07 WBC (4.5-12.0) X10-3/uL RBC (3.23-5.20) x10(6)uL Hgb (11.5-15.5) g/dL Hct (30.0-51.3) % MCV (80-96) fL MCH (27.7-33.6) pg MCHC (32.2-35.4) g/dL RDW (11.5-15.5) % Plt Count (125-369) X10(3)uL MPV (7.4-10.4) fL Neut % (Auto) (46-82) % Lymph % (Auto) (13-37) % [place] % (Auto) (4-12) % Eos % (Auto) (1.0-5.0) % Baso % (Auto) (0-2) % Neut # (Auto) (1.6-8.3) # Lymph # (Auto) (0.6-5.0) # [place] # (Auto) (0.0-1.3) # Eos # (Auto) (0.0-0.8) # Baso # (Auto) (0.0-0.2) # Sodium (135-145) mmol/L Potassium (3.5-5.3) mmol/L Chloride (100-110) mmol/L Carbon Dioxide (23-29) mmol/L BUN (8-23) mg/dL Creatinine (0.6-1.3) mg/dL Est Cr Clr Drug Dosing mL/min Estimated GFR (MDRD) (>60) BUN/Creatinine Ratio (9-20) Glucose (80-116) mg/dL POC Glucose 311 H (80-116) mg/dL Hemoglobin A1c 11.2 H (4.0-6.0) % Calcium (8.6-10.2) mg/dL Total Bilirubin (0.1-1.3) mg/dL AST (5-27) IU/L ALT (14-26) IU/L Alkaline Phosphatase (56-112) IU/L Creatine Kinase 2679 H* (60-160) IU/L Troponin I (0.02-0.06) NG/ML Total Protein (6.0-8.0) g/dL Albumin (3.2-4.6) g/dL Globulin g/dL Albumin/Globulin Ratio Med Orders - Current: Current Medications Acetaminophen (Tylenol) 650 mg RECTAL Q4H PRN PRN Reason: Mild pain/fever Last Admin: 08/02/16 09:42 Dose: 650 mg Artificial Tears (Genteal Mild To Moderate Ophth Soln) 0 ml EYELF DAILY [facility] Last Admin: 08/02/16 09:43 Dose: 1 drop Artificial Tears (Refresh Tears 0.5%) 0 ml EYEBOTH QID [facility] Last Admin: 08/02/16 13:26 Dose: 1 drop Aspirin (Aspirin) 600 mg RECTAL DAILY [facility] Last Admin: 08/02/16 09:42 Dose: 600 mg Enoxaparin Sodium (Lovenox) 80 mg SUBCUT Q12H [facility] Last Admin: 08/02/16 11:08 Dose: 80 mg Eye Cleanser (Ocusoft Lid Scrub Plus) 1 pad TP BID [facility] Clindamycin Phosphate 600 mg/ (Sodium Chloride) 54 mls @ 150 mls/hr IV Q8H [facility] Last Admin: 08/02/16 11:09 Dose: 150 mls/hr Dextrose/Water (Dextrose 5% In Water) 1,000 mls @ 50 mls/hr IV ASDIRECTED [facility] Last Admin: 08/02/16 08:48 Dose: 50 mls/hr Insulin Aspart (Novolog) 0 unit SUBCUT QIDACANDBED [facility] PRN Reason: Protocol Last Admin: 08/02/16 11:15 Dose: 8 unit Morphine Sulfate (Morphine) 2 mg IVPUSH Q2H PRN PRN Reason: Pain (severe 7-10) Last Admin: 08/02/16 15:19 Dose: 2 mg Ondansetron HCl (Zofran) 4 mg IV Q6H PRN PRN Reason: Nausea/Vomiting Sodium Chloride (Saline Flush) 10 ml FLUSH ASDIRECTED PRN PRN Reason: Keep Vein Open Last Admin: 08/01/16 19:33 Dose: 10 ml Discontinued Medications Artificial Tears (Refresh Plus 0.5%) 0 each EYEBOTH QID [facility] Last Admin: 08/02/16 11:25 Dose: Not Given Artificial Tears (Refresh Tears 0.5%) Confirm Administered Dose 15 ml .ROUTE .STK-MED ONE Stop: 08/01/16 21:45 Last Admin: 08/01/16 21:53 Dose: Not Given Aspirin (Aspirin) 600 mg RECTAL DAILY [facility] Last Admin: 08/01/16 21:26 Dose: Not Given Aspirin (Aspirin) 325 mg PO ONETIME ONE Stop: 08/01/16 21:17 Last Admin: 08/01/16 21:56 Dose: 325 mg Aspirin (Aspirin) Confirm Administered Dose 324 mg .ROUTE .STK-MED ONE Stop: 08/01/16 21:45 Last Admin: 08/01/16 21:53 Dose: Not Given Glycerin (Sani-Supp Pediatric) 1.2 gm RECTAL DAILY [facility] Last Admin: 08/02/16 11:25 Dose: Not Given Lactated Ringer's (Ringers, Lactated) 1,000 mls @ 1,000 mls/hr IV BOLUS ONE Stop: 08/01/16 18:32 Last Admin: 08/01/16 19:32 Dose: 1,000 mls/hr Lactated Ringer's (Ringers, Lactated) 1,000 mls @ 125 mls/hr IV ASDIRECTED JOO Last Admin: 08/02/16 01:36 Dose: 125 mls/hr Diltiazem HCl 100 mg/ Sodium (Chloride) 100 mls @ 5 mls/hr IV TITRATE JOO; 5 MG /HR PRN Reason: Protocol Sodium Chloride (Normal Saline) 1,000 mls @ 999 mls/hr IV ASDIRECTED [facility]OO Last Admin: 08/01/16 21:28 Dose: 999 mls/hr Sodium Chloride (Normal Saline) 1,000 mls @ 999 mls/hr IV ASDIRECTED JOO Last Admin: 08/02/16 00:23 Dose: 999 mls/hr Non-Formulary Medication (Miscellaneous Medical Supply [Eyelid Cleansing Pads]) 1 each EYEBOTH BID [facility] Last Admin: 08/02/16 11:25 Dose: Not Given Olanzapine (Zyprexa) 4 mg IM ONETIME ONE Stop: 08/01/16 22:45 Last Admin: 08/01/16 23:48 Dose: 4 mg Olanzapine (Zyprexa) 5 mg IM ONETIME ONE Stop: 08/02/16 02:01 Last Admin: 08/02/16 02:28 Dose: 5 mg - Exam Quality Assessment: Reports: urine catheter General: Reports: obtunded HEENT: Reports: Pupils equal. Denies: Mucous membr. moist/pink Neck: Reports: trachea midline Lungs: Reports: Decreased breath sounds. Denies: Rales Cardiovascular: Reports: Regular Rate, Regular Rhythm, Gallops Abdomen: Reports: bowel sounds present, soft Extremities: Reports: edema (trace bilat) Skin: Reports: dry *Q Meaningful Use (DIS) - VTE *Q VTE Criteria *Q: - Stroke *Q Stroke Criteria *Q: - AMI *Q AMI Criteria *Q:
[2016-08-02] MEDS: Eyelid Cleanser Pads, 30 per Box TP SCH (20:11)
[2016-08-02] MEDS ORDERED: LORazepam Conc Solution 2 MG/ML 30 ML Bottle PO PRN (21:00)
[2016-08-03] MEDS: Sodium Chloride 0.9% 10 ML Syringe FLUSH PRN (04:00)
[2016-08-03] MEDS: Dextrose 5% in Water 1,000 ML IV SCH (06:28)
[2016-08-03] MEDS ORDERED: LORazepam Conc Solution 2 MG/ML 30 ML Bottle PO PRN (07:28)
[2016-08-03] MEDS: Hypromellose 0.3% Ophth Soln 15 ML Bottle EYELF SCH (08:55)
[2016-08-03] MEDS: Eyelid Cleanser Pads, 30 per Box TP SCH (08:55)
[2016-08-03] MEDS: Enoxaparin 80 MG/0.8 ML Syringe SUBCUT SCH (08:55)
[2016-08-03] MEDS: Carboxymethylcellulose Sodium 0.5% Ophth Soln 15 ML Bottle EYEBOTH SCH (08:57)
[2016-08-03] MEDS: Insulin Aspart 100 Units/ML 3 ML Pen SUBCUT SCH (09:02)
[2016-08-03] MEDS: Aspirin 300 MG Supp RECTAL SCH (10:24)
[2016-08-03 10:58] VITALS: BP 120/81
--- NOTE | 2016-08-06 15:01 | ER ---
DATE SEEN: 08/01/2016 HISTORY OF PRESENT ILLNESS: I was asked to see the patient at 2010 hours on 08/02/2016. She is a long term patient, 76 years of age, who has increased white count and elevated troponin. Her daughter recently flew in from [place], [place] and was quite concerned that mother would be placed on hospice. The patient was last seen by her daughter in October 2015. She is known to have cycle bipolar, has been seen by Dr. Stanton in the past. Per daughter, "She gets worse when she has not had her medicine." For the last several days has not been eating, refusing to eat. She has progressively increased delirium and thought to be dehydrated, consequently is admitted to the hospital for further evaluation, care, and placement in hospice. The nurses are concerned that she may have ulcers in her mouth and she is dehydrated. On examination, at approximately 0430 hours, she is reluctant to open her eyes. Pupils are equal, round, and reactive to light. Hearing has decreased. She does not have receptive aphasia and responds with moving her body, but does not communicate. Mouth is extremely dry with a fissured tongue, and has multiple food particles in mouth. Once this was cleansed, there is no evidence for ulcers in her mouth (perhaps nurses thought to have ulcer because all the food, white membranous mucous, and irritation in her mouth) and/or perhaps has healed since the patient first arrived to the hospital, I do not know what that looked like 6 to 8 to 12 hours ago. REVIEW OF SYSTEMS: Not available. Heart rate is in the 120s. MEDICATIONS: 1. Lamictal 50 mg b.i.d. 2. Cyclosporine-Restasis. 3. Zoloft. 4. Zyprexa. 5. Namenda. 6. Ranitidine. 7. Imodium. 8. Gregory 300 mg daily. 9. L-thyroxine. 10.Hydrocortisone. 11.Anusol-HC suppository p.r.n. 12.Zofran p.r.n. 13.Gabapentin 400 mg at bedtime and 300 mg t.i.d. 14.Eucalyptus. 15.Estradiol as directed. 16.Donepezil. 17.Cyanocobalamin. 18.Vitamin D. 19.Methylcellulose for the eyes. 20.Aspirin. 21.Calcium carbonate. 22.Acetaminophen. PHYSICAL EXAMINATION: VITAL SIGNS: Heart rate 125, blood pressure is 90s to 100. GENERAL: The patient is not alert, minimally responsive to commands, moves her arms, but does not speak or does not open her eyes. PHARYNX: Marked debris in the mouth. NECK: Supple. No bruits in the neck. LUNGS: Clear to auscultation. I do not hear rales. HEART: S1 and S2. No irregular rate or rhythm. ABDOMEN: Soft. No guarding. No abdominal discomfort. EXTREMITIES: Without edema. IMPRESSION: 1. My initial impression is the patient is dehydrated with sinus tachycardia. The patient to be flushed with another 1000 mL normal saline, perhaps behind by 3 L. She has not been drinking fluids for several days. 2. Tooth was loose and I just gently pulled it off because I was afraid she might aspirate it. This tooth has a cap on it and has a wick. There is a small amount of bleeding. Bleeding was cleared and the bleeding relented. 3. She is not getting her medication for dementia and also for her depression and her daughter thinks that may be the reason why she is not responding. "When she gets more of the medicine, she will respond better." 4. [place] for her is poor. At present, dehydrated, needs IV fluid to restore her hydration, but in the long run probably would not have this in the long term, that is a decision that family have to relate to deal with. Currently, her blood pressure is 166/102, heart rate 110 to 112, respirations 30. I think the narrow pulse pressure is a function of the patient's dehydration and tachycardia. Respiratory rate was the same. The patient was rechecked an hour later and the heart rate came down. Pressure came down. She is more alert, more responsive, interactive, she opens her eyes, and her daughter is pleased. She does not have cardiomegaly on x-ray. No cephalization, poor inspiratory effort. No cardiomegaly. No effusion noted. Abdominal x-ray, large gas shadow is noted. No air fluid level demonstrated. Interestingly, there appears to be excessive gas over the right liver, which would suggest possibly an abnormal gas pattern above the liver, (Chilaiditi sign). However, the x-rays to be read by the radiologist. She had a CAT scan of her head performed. No evidence for MANAGER AGRICULTURAL lesion. She has moderate encephalomalacia, but no acute intracerebral bleed or significant abnormality causing her change in mentation. Earlier today, she had 16,000 white count and hypochloremia, and the sodiums were markedly elevated. Very minimal urine output, 60 to 70 mL since [place]a placed earlier in the day. Other laboratory values at 2359 hours on 08/01/2016; the patient had a chloride of 123, etiology for this is possible secondary to diuretic effect, but she had an elevated sodium, she was dehydrated also, and had an elevated sodium of 151. BUN and creatinine ratio did not reflect dehydration, but clinically she is dehydrated. GFR considered 27, creatinine 1.8, BUN 35. She has chronic kidney disease, suggestion stage 3 to 4 chronic kidney disease. This may mirror why she is putting less urine. Mild hyperglycemia. Etiology for this, she is not known to be a diabetic, may be stress reaction. Liver enzymes are elevated. AST is 109, ALT is 41. This may reflect ischemia of the liver. Also showed elevated troponin suggesting myocardial infarction. The troponin changed from 0.75 at 1600 hours today and at 2000 hours the troponin was 0.83. Repeat troponin pending for the morning. She had an elevated CPK. ASSESSMENT: 1. in general, the patient's dehydration has caused dramatic change in her mentation. Her status improved even after a short period of aggressive hydration. Time spent with patient is 60 minutes. 2. Hypochloremia, etiology indeterminate-questionable renal. 3. Myocardial infarction based on the troponin. I believe she had EKG changes. I do not have EKG in front of me, but I believe it was ST-elevation anteriorly. 4. Elevated CPK (late this morning) probably secondary to myocardial involvement, however may be related to just lying in bed as a long term patient and rhabdomyolysis without getting up and moving around. 5. Hyperglycemia. I believe she is not known to be a diabetic, but this may be a stress reaction. It could be pancreatitis but lipase and amylase not performed. 6. Stage 4 and/or stage 3 chronic kidney disease. 7. Hyponatremia. 8. Dementia. 9. Depression. PLAN: 1. Continue hydration. Follow IV output. She received Zyprexa initially 4 mg IM, but this did not make a difference. She is quite restless. They are worried that she may roll out of bed. She is acting restless, consequently given another 5 mg Zyprexa IM. The patient seemed to become stable and rested and allowed the staff to manage her effectively. 2. She is a DNR/DNI. 3. Daughter very concerned, she does not want her to go to hospice, but is open to that possibility if needed. 4. She has myocardial infarction. We discussed with the daughter if they wanted her go to [facility], she, the daughter was not interested in having transfer to [facility] for further care at this point. /[id number] ANA ROSA/ANNITA
== END 2016-08-03 10:40 | disposition hospice, inpatient (51) | DRG 281 ==
LOC: FB.ED 16:28 → FB.MS 18:44
PROVIDERS: ADMIT Emergency Medicine; ATTEND Family Medicine
PROC: 0T9B70Z Drainage of Bladder with Drainage Device, Via Natural or Artificial Opening (ICD-10-PCS; principal; 2016-08-01)
DX: I21.3 ST elevation (STEMI) myocardial infarction of unspecified site (principal); R73.9 Hyperglycemia, unspecified; N17.9 Acute kidney failure, unspecified; F01.51 Vascular dementia, unspecified severity, with behavioral disturbance; Z51.5 Encounter for palliative care; N18.9 Chronic kidney disease, unspecified; E11.65 Type 2 diabetes mellitus with hyperglycemia; Z79.4 Long term (current) use of insulin; I12.9 Hypertensive chronic kidney disease with stage 1 through stage 4 chronic kidney disease, or unspecified chronic kidney disease; R53.81 Other malaise; I67.9 Cerebrovascular disease, unspecified; E78.5 Hyperlipidemia, unspecified; I73.9 Peripheral vascular disease, unspecified; M54.9 Dorsalgia, unspecified; G89.29 Other chronic pain; E03.9 Hypothyroidism, unspecified; F41.9 Anxiety disorder, unspecified
CPT/HCPCS: 36415; 70450; 71010; 74000; 80048; 80053; 80175; 80178; 81001; 82550; 82962; 83036; 83605; 84443; 84484; 85025; 85027; 87040; 93005; 99285; A9270-GY; J1650; J2270; J7040; J7050; J7060; J7120; S0077; S0166